=== PATIENT | female | born 1985 | race Two or more races ===

== ENCOUNTER → 2018-03-29 | Outpatient (CLI) | payer BC ==
--- NOTE | 2018-03-29 14:27 | Diagnostic Imaging Report ---
Indication: Cough Comparison: None 2 views of the chest obtained. Findings: Cardiomediastinal silhouette and pulmonary vascularity are within normal limits for age. The diaphragmatic contour is smooth and costophrenic angles are sharp. No pleural effusions are identified. The bones are unremarkable. Impression: No acute disease
== END | disposition home or self-care (01) ==
LOC: RAD 12:37
DX: R05 Cough (principal)
CPT/HCPCS: 71046